=== PATIENT | male | born 1985 | race African-American/Black ===

== ENCOUNTER 2017-04-19 13:41 | Outpatient (CLI) | payer SELFPAY | END 2017-04-19 23:59 | disposition EMS.NT | LOC: EMS 13:41 | PROVIDERS: ATTEND Surgery | DX: S61.214A Laceration without foreign body of right ring finger without damage to nail, initial encounter (principal); W26.8XXA Contact with other sharp object(s), not elsewhere classified, initial encounter; Y92.039 Unspecified place in apartment as the place of occurrence of the external cause ==

== ENCOUNTER 2017-04-19 14:08 | Emergency (ER) | payer SELFPAY ==
--- NOTE | 2017-04-19 14:20 | ED Physician Documentation ---
PD HPI UPPER EXT INJURY - Stated complaint Stated Complaint: R HAND LAC - Chief complaint Chief Complaint: Ext Problem - History obtained from History obtained from: Patient - History of Present Illness Location: Right, Finger (ring finger and middle finger.) Type of injury: Laceration (he was lifting Large ceramic sculpture type object that had pointy edges. 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 It bled briskly and he bandaged it right away. He states he is unable to bend his finger. He has numbness on the ulnar side of the finger. He came promptly here. He is up-to-date on his tetanus. 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 denies: Vomiting, Diarrhea PD PAST MEDICAL HISTORY - Past Medical History Cardiovascular: None Musculoskeletal: None - Present Medications Home Medications: Ambulatory Orders Medication Instructions Recorded Confirmed Cephalexin [Keflex] 500 mg PO QID #24 capsule 04/19/17 HYDROcod/ACETAM 5/325 [[place] 5/325] 1 tab PO Q6H PRN #15 tablet 04/19/17 - Allergies Allergies/Adverse Reactions: Allergies Allergy/AdvReac Type Severity Reaction Status Date / Time No Known Drug Allergies Allergy Verified 04/19/17 14:16 PD ED PE NORMAL - Vitals Vital signs reviewed: Yes - General General: Alert and oriented X 3, Well developed/nourished, Other (appears in pain in hand. ) - Derm Derm: Normal color, Warm and dry - Extremities Extremities: Other (right hand with abrasion on side of middle finger, partial thickness; no particular treatment. Ring finger however with deep laceration palmar side from MC head to the PIP joint, with diagonal orientation and lac through flexor tendons. Unable to flex finger. He can extend it. There is venous dripping blood, but no spurting. There is color and cap refill in fingertip. No sensation to touch/sharp in ulnar side of finger. Can feel on radial side. ) - Neuro Neuro: Alert and oriented X 3, Normal speech, Other (right ring finger with laceration palmar side from MC head to PIP joint down to deep tissue. Appares to be flexor tendon complete lac. Anesthetic on ulnar side of finger, radial side is okay. Normal cap refill and color in tip of finger. ) Eye Opening: Spontaneous Motor: Obeys Commands Verbal: Oriented GCS Score: 15 - Psych Psych: Normal mood Results - Vitals Vitals: Vital Signs - 24 hr 04/19/17 04/19/17 04/19/17 14:13 15:15 18:06 Temperature 37.6 C H Heart Rate 56 L 63 70 Respiratory 16 20 13 Rate Blood Pressure 102/57 L 133/64 H 113/66 O2 Saturation 99 100 99 Oxygen O2 Source Room air - Rads (name of study) finger Radiology: Prelim report reviewed, EMP read contemporaneously Procedures - Laceration (location) right ring finger Length in cm: 2.5 Wound type: Irregular, Clean Neurovascular status: No: Sensory intact (ulnar side finger with no sensation; radial side normal), Motor intact (unable to flex finger) Tendon involvement: Tendon Injury Anesthesia: Lidocaine 2% with epi, Marcaine 0.5% Wound Preparation: Irrigated copiously NS. No: FB identified Skin layer closure: Nylon, Interrupted, Size #-0 - enter number (4), Sutures - enter # (6 for loose closure and to stop bleeding) Other: Patient tolerated well, No complications, Tetanus UTD Complexity: Simple PD MEDICAL DECISION MAKING - ED course Complexity details: considered differential (has flexor tendon tear with lac. The wound was numbnes, irrigated well with direct pressure, and loose suture closure for protection of tissue. ), d/w patient, d/w physician practice consultant (trying to contact Hand in [place] (or [facility] does not do hand repair). If unable or not accepting, then will talk with [facility]. ), other (Talked with Hand at [facility] - to get surgery tomorrow morning. ) Departure - Departure Disposition: 01 Home, Self Care Clinical Impression: Flexor tendon laceration of finger with open wound Qualifiers: Encounter type: initial encounter Qualified Code(s): S56.129A - Laceration of flexor muscle, fascia and tendon of unspecified finger at forearm level, initial encounter Condition: Stable Record reviewed to determine appropriate education?: Yes Instructions: ED Laceration Tendon Prescriptions: Cephalexin [Keflex] 500 mg PO QID #24 capsule HYDROcod/ACETAM 5/325 [[place] 5/325] 1 tab PO Q6H PRN #15 tablet PRN Reason: Pain Comments: It is okay to eat this evening. Keep the dressing and splint on the finger overnight into tomorrow. You will be having surgery to repair the tendon and properly repair of the laceration tomorrow late morning at [facility]. Have nothing to eat or drink after midnight tonight unless he need a very small sip of water with medication in the morning. Present to the [facility] emergency room admission area and let them know that you are there to have hand surgery by Dr. Wilner Mohan and they should direct you to where you need you to go. The plan is for surgery in late morning. Bring extra close in case they keep you overnight. Discharge Date/Time: 04/19/17 18:35
[2017-04-19] MEDS ORDERED: LIDOCAINE 2%-EPI 1:100000 20 ML MDV SUBQ STA (14:26)
[2017-04-19] MEDS ORDERED: ACETAMINOPHEN 325 MG TABLET PO STA (15:05)
[2017-04-19] MEDS ORDERED: IBUPROFEN 600 MG TABLET PO STA (15:05)
--- NOTE | 2017-04-19 15:33 | XRAY Preliminary Report ---
Exam: XR FINGER(S) RT IMPRESSION: No bony abnormality. [facility] SITE ID: [id number]
--- NOTE | 2017-04-19 15:35 | XRAY Report ---
EXAM: RIGHT FOURTH DIGIT RADIOGRAPHY EXAM DATE: 04/19/2017 03:08 PM. CLINICAL HISTORY: Right ring finger injury. Laceration to base. COMPARISON: None. TECHNIQUE: 3 views. FINDINGS: Bones: Normal. No fracture or bone lesion. Joints: Normal. No subluxations. Soft Tissues: Soft tissue injury noted. IMPRESSION: No bony abnormality. [facility] Referring Provider Line: [phone] SITE ID: [id number]
[2017-04-19] MEDS ORDERED: cephALEXin 250 MG CAPSULE PO STA (17:42)
[2017-04-19 18:07] VITALS: BP 113/66
== END 2017-04-19 18:35 | disposition home or self-care (01) ==
LOC: ED 14:08
DX: S56.123A Laceration of flexor muscle, fascia and tendon of right middle finger at forearm level, initial encounter (principal); S56.125A Laceration of flexor muscle, fascia and tendon of right ring finger at forearm level, initial encounter; W26.8XXA Contact with other sharp object(s), not elsewhere classified, initial encounter
CPT/HCPCS: 12001; 73140; 99283; A9270